=== PATIENT | male | born 1965 | race Caucasian/White ===

== ENCOUNTER 2016-07-02 16:12 | Inpatient (IN) | payer OTHER ==
[~2016-07-02] VITALS: Ht 172.7 cm; Wt 79.4 kg
[2016-07-02 18:30] VITALS: BP 125/80
[2016-07-02] MEDS: DOCUSATE SODIUM 100 MG CAPSULE PO SCH (20:32)
[2016-07-02] MEDS: SENNA 187 MG TABLET PO SCH (20:32)
[2016-07-02] MEDS: ATORVASTATIN CALCIUM 40 MG TABLET PO SCH (20:32)
[2016-07-02] MEDS: INSULIN GLARGINE,HUM.REC.ANLOG 100 UNITS/ML SQ SCH (20:33)
[2016-07-02] MEDS ORDERED: CARVEDILOL 6.25 MG TABLET PO SCH (21:00)
[2016-07-02] MEDS ORDERED: PNEUMOCOCCAL VACCINE POLYVALENT 0.5 ML VIAL [PPSV23] IM ONE (21:30)
[2016-07-02] MEDS ORDERED: INFLUENZA VIRUS VACCINE QVS 2016-17 (3YR+)/PF 60 MCG/0.5 ML SYRINGE IM ONE (21:30)
[2016-07-02 21:50] LABS: GLUCOSE COMMENT 1 Received Meds; GLUCOSE,POINT OF CARE 214 MG/DL (70-110)
[2016-07-02] MEDS ORDERED: DEXTROSE 50%-WATER 25 GM/50 ML SYRINGE IVP PRN (23:15)
[2016-07-02] MEDS: TraZODone HCL 50 MG TABLET PO PRN (23:18)
[2016-07-03 02:55] VITALS: BP 144/82
[2016-07-03 03:13] LABS: APPEARANCE,URINE CLEAR (CLEAR); GLUCOSE, URINE (UA) 250 mg/dL (NEGATIVE); KETONES,URINE NEGATIVE (NEGATIVE); LEUKOCYTE ESTERASE ,URINE NEGATIVE (NEGATIVE); OCCULT BLOOD,URINE NEGATIVE (NEGATIVE); PROTEIN,URINE NEGATIVE (NEGATIVE)
[2016-07-03 03:23] LABS: ADD UA MICROSCOPIC YES
[2016-07-03 03:24] LABS: RBC,URINE None Seen /HPF (0-2); WBC,URINE None Seen /HPF (0-5)
[2016-07-03 06:01] LABS: GLUCOSE,POINT OF CARE 156 MG/DL (70-110)
[2016-07-03 07:08] LABS: BASOPHILS % (AUTO) 0.5 % (0.0-2.0); EOSINOPHILS % (AUTO) 4.5 % (1.0-6.0); HEMATOCRIT 43.3 % (41-53); HEMOGLOBIN 14.4 g/dL (13.5-17.5); LYMPHOCYTES # (AUTO) 2.7 K/uL (1.0-4.8); MEAN CORPUSCULAR HGB CONC 33.3 G/dL (31.0-37.0); MEAN CORPUSCULAR VOLUME 84 fL (80-100); MONOCYTES # (AUTO) 0.6 K/uL (0.1-1.0); MONOCYTES % (AUTO) 6.7 % (2.0-9.0); NEUTROPHILS # (AUTO) 4.8 K/uL (1.8-7.7); NEUTROPHILS % (AUTO) 56.3 % (40.0-70.0); PLATELET COUNT (AUTO) 234 K/uL (150-450); RED BLOOD CELL COUNT(AUTO) 5.15 MIL/uL (4.50-5.90); RED CELL DISTRIBUTION WIDTH 13.8 % (11.5-14.5); WHITE BLOOD COUNT (AUTO) 8.5 K/uL (4.5-11.0)
[2016-07-03 07:34] LABS: ALBUMIN 3.7 g/dL (3.4-5.0); BILIRUBIN,TOTAL 0.5 mg/dL (0.1-1.0); CALCIUM, TOTAL 9.4 mg/dL (8.8-10.5); CREATININE 1.34 mg/dL (0.60-1.30); POTASSIUM 4.3 mmol/L (3.5-5.1); TOTAL PROTEIN, SERUM 7.9 g/dL (6.4-8.2)
[2016-07-03 07:35] VITALS: BP 141/95
[2016-07-03] MEDS: DOCUSATE SODIUM 100 MG CAPSULE PO SCH ×2 (08:56→21:03)
[2016-07-03] MEDS: ASPIRIN 81 MG CHEWABLE TABLET PO SCH (08:56)
[2016-07-03] MEDS: POTASSIUM CHLORIDE 10 MEQ ER TABLET PO SCH (08:56)
[2016-07-03] MEDS: MetFORMIN HCL 500 MG TABLET PO SCH ×2 (08:56→17:20)
[2016-07-03] MEDS ORDERED: LISINOPRIL 20 MG TABLET PO SCH (09:00)
[2016-07-03] MEDS ORDERED: FUROSEMIDE 40 MG TABLET PO SCH (09:00)
[2016-07-03] MEDS: INSULIN ASPART 100 UNITS/ML SQ PRN ×4 (09:01→21:02)
[2016-07-03] MEDS: SERTRALINE HCL 50 MG TABLET PO SCH (09:16)
[2016-07-03] MEDS: HEPARIN SODIUM,PORCINE 5,000 UNITS/ML VIAL SQ SCH ×2 (12:27→20:56)
[2016-07-03 12:55] LABS: GLUCOSE COMMENT 1 Received Meds; GLUCOSE,POINT OF CARE 181 MG/DL (70-110)
[2016-07-03 15:18] VITALS: BP 101/67
[2016-07-03 18:06] LABS: GLUCOSE COMMENT 1 Received Meds; GLUCOSE,POINT OF CARE 202 MG/DL (70-110)
[2016-07-03] MEDS: ATORVASTATIN CALCIUM 40 MG TABLET PO SCH (20:56)
[2016-07-03] MEDS: SENNA 187 MG TABLET PO SCH (20:56)
[2016-07-03] MEDS: INSULIN GLARGINE,HUM.REC.ANLOG 100 UNITS/ML SQ SCH (21:01)
[2016-07-03 21:51] LABS: GLUCOSE COMMENT 1 Received Meds; GLUCOSE,POINT OF CARE 193 MG/DL (70-110)
[2016-07-04] VITALS: BP 152/79
[2016-07-04] MEDS: TraZODone HCL 50 MG TABLET PO PRN (00:48)
[2016-07-04 05:56] LABS: GLUCOSE,POINT OF CARE 159 MG/DL (70-110)
[2016-07-04 07:27] LABS: CALCIUM, TOTAL 9.3 mg/dL (8.8-10.5); CREATININE 1.4 mg/dL (0.60-1.30)
[2016-07-04 07:30] VITALS: BP 143/86
[2016-07-04] MEDS: DOCUSATE SODIUM 100 MG CAPSULE PO SCH ×2 (08:26→20:13)
[2016-07-04] MEDS: MetFORMIN HCL 500 MG TABLET PO SCH ×2 (08:26→17:46)
[2016-07-04] MEDS: POTASSIUM CHLORIDE 10 MEQ ER TABLET PO SCH (08:26)
[2016-07-04] MEDS: ASPIRIN 81 MG CHEWABLE TABLET PO SCH (08:26)
[2016-07-04] MEDS: SERTRALINE HCL 50 MG TABLET PO SCH (08:26)
[2016-07-04] MEDS: HEPARIN SODIUM,PORCINE 5,000 UNITS/ML VIAL SQ SCH ×2 (08:36→20:13)
[2016-07-04] MEDS: INSULIN ASPART 100 UNITS/ML SQ PRN ×4 (08:37→20:21)
[2016-07-04] MEDS: ACETAMINOPHEN 325 MG TABLET PO PRN (11:22)
[2016-07-04 13:01] LABS: GLUCOSE,POINT OF CARE 165 MG/DL (70-110)
[2016-07-04 17:28] VITALS: BP 137/96
[2016-07-04 18:15] LABS: GLUCOSE COMMENT 1 Received Meds; GLUCOSE,POINT OF CARE 151 MG/DL (70-110)
[2016-07-04] MEDS: SENNA 187 MG TABLET PO SCH (20:13)
[2016-07-04] MEDS: ATORVASTATIN CALCIUM 40 MG TABLET PO SCH (20:13)
[2016-07-04] MEDS: INSULIN GLARGINE,HUM.REC.ANLOG 100 UNITS/ML SQ SCH (20:20)
[2016-07-04 21:36] LABS: GLUCOSE COMMENT 1 Received Meds; GLUCOSE,POINT OF CARE 229 MG/DL (70-110)
[2016-07-05 02:29] VITALS: BP 153/89
[2016-07-05 06:01] LABS: GLUCOSE,POINT OF CARE 175 MG/DL (70-110)
[2016-07-05 07:04] VITALS: BP 134/70
[2016-07-05] MEDS: DOCUSATE SODIUM 100 MG CAPSULE PO SCH ×2 (08:01→21:28)
[2016-07-05] MEDS: POTASSIUM CHLORIDE 10 MEQ ER TABLET PO SCH (08:02)
[2016-07-05] MEDS: CARVEDILOL 3.125 MG TABLET PO SCH ×2 (08:02→21:28)
[2016-07-05] MEDS: HEPARIN SODIUM,PORCINE 5,000 UNITS/ML VIAL SQ SCH ×2 (08:02→21:32)
[2016-07-05] MEDS: SERTRALINE HCL 50 MG TABLET PO SCH (08:02)
[2016-07-05] MEDS: LISINOPRIL 5 MG TABLET PO SCH (08:02)
[2016-07-05] MEDS: ASPIRIN 81 MG CHEWABLE TABLET PO SCH (08:02)
[2016-07-05] MEDS: MetFORMIN HCL 500 MG TABLET PO SCH (08:02)
[2016-07-05] MEDS: INSULIN ASPART 100 UNITS/ML SQ PRN ×2 (08:06→21:29)
[2016-07-05] MEDS ORDERED: LISINOPRIL 20 MG TABLET PO SCH (09:00)
[2016-07-05] MEDS ORDERED: FUROSEMIDE 40 MG TABLET PO SCH (09:00)
[2016-07-05] MEDS ORDERED: CARVEDILOL 6.25 MG TABLET PO SCH (09:00)
[2016-07-05 11:21] LABS: GLUCOSE,POINT OF CARE 136 MG/DL (70-110)
[2016-07-05 15:11] VITALS: BP 105/63
[2016-07-05 18:11] LABS: GLUCOSE,POINT OF CARE 139 MG/DL (70-110)
[2016-07-05 20:46] LABS: GLUCOSE,POINT OF CARE 211 MG/DL (70-110)
[2016-07-05] MEDS: ATORVASTATIN CALCIUM 40 MG TABLET PO SCH (21:28)
[2016-07-05] MEDS: SENNA 187 MG TABLET PO SCH (21:28)
[2016-07-05 22:59] VITALS: BP 141/96
[2016-07-05 23:24] VITALS: BP 129/59
[2016-07-06 05:51] LABS: GLUCOSE,POINT OF CARE 162 MG/DL (70-110)
[2016-07-06 06:25] LABS: BASOPHILS # (AUTO) 0.03 K/uL (0.00-0.20); BASOPHILS % (AUTO) 0.3 % (0.0-2.0); EOSINOPHILS # (AUTO) 0.35 K/uL (0.00-0.70); HEMOGLOBIN 13.9 g/dL (13.5-17.5); LYMPHOCYTES # (AUTO) 2.6 K/uL (1.0-4.8); LYMPHOCYTES % (AUTO) 30.2 % (22.0-44.0); MEAN CORPUSCULAR HEMOGLOBIN 28.2 pg (26.0-34.0); MEAN CORPUSCULAR HGB CONC 33.9 G/dL (31.0-37.0); MEAN CORPUSCULAR VOLUME 83 fL (80-100); MONOCYTES # (AUTO) 0.6 K/uL (0.1-1.0); MONOCYTES % (AUTO) 7.3 % (2.0-9.0); NEUTROPHILS % (AUTO) 58.1 % (40.0-70.0); PLATELET COUNT (AUTO) 213 K/uL (150-450); RED BLOOD CELL COUNT(AUTO) 4.93 MIL/uL (4.50-5.90); RED CELL DISTRIBUTION WIDTH 13.3 % (11.5-14.5); WHITE BLOOD COUNT (AUTO) 8.5 K/uL (4.5-11.0)
[2016-07-06 06:42] LABS: CALCIUM, TOTAL 9.1 mg/dL (8.8-10.5); CREATININE 1.5 mg/dL (0.60-1.30); MAGNESIUM 1.8 mg/dL (1.80-2.40); PHOSPHORUS 3.9 mg/dL (2.5-4.9); POTASSIUM 4.1 mmol/L (3.5-5.1)
[2016-07-06 07:20] VITALS: BP 133/83
[2016-07-06] MEDS: HEPARIN SODIUM,PORCINE 5,000 UNITS/ML VIAL SQ SCH ×2 (08:19→20:55)
[2016-07-06] MEDS: ASPIRIN 81 MG CHEWABLE TABLET PO SCH (08:19)
[2016-07-06] MEDS: LISINOPRIL 5 MG TABLET PO SCH (08:19)
[2016-07-06] MEDS: GlipiZIDE 5 MG TABLET PO SCH (08:20)
[2016-07-06] MEDS: DOCUSATE SODIUM 100 MG CAPSULE PO SCH ×2 (08:20→20:56)
[2016-07-06] MEDS: CARVEDILOL 3.125 MG TABLET PO SCH ×2 (08:20→20:56)
[2016-07-06] MEDS: SERTRALINE HCL 50 MG TABLET PO SCH (08:21)
[2016-07-06] MEDS: POTASSIUM CHLORIDE 10 MEQ ER TABLET PO SCH (08:21)
[2016-07-06] MEDS: FUROSEMIDE 40 MG TABLET PO SCH (08:21)
[2016-07-06] MEDS: INSULIN ASPART 100 UNITS/ML SQ PRN ×3 (08:31→20:57)
[2016-07-06] MEDS ORDERED: MetFORMIN HCL 500 MG TABLET PO SCH (09:00)
[2016-07-06 14:45] VITALS: BP 122/77
[2016-07-06 17:41] LABS: GLUCOSE,POINT OF CARE 99 MG/DL (70-110)
[2016-07-06 17:41] LABS: GLUCOSE,POINT OF CARE 149 MG/DL (70-110)
[2016-07-06 20:30] VITALS: BP 109/79
[2016-07-06] MEDS: ATORVASTATIN CALCIUM 40 MG TABLET PO SCH (20:56)
[2016-07-06] MEDS: SENNA 187 MG TABLET PO SCH (20:56)
[2016-07-06 23:51] VITALS: BP 136/81
[2016-07-07] MEDS: TraZODone HCL 50 MG TABLET PO PRN ×2 (00:55→21:35)
[2016-07-07 05:31] LABS: GLUCOSE,POINT OF CARE 210 MG/DL (70-110)
[2016-07-07 06:11] LABS: GLUCOSE,POINT OF CARE 201 MG/DL (70-110)
[2016-07-07 06:56] LABS: CALCIUM, TOTAL 9.3 mg/dL (8.8-10.5); CREATININE 1.66 mg/dL (0.60-1.30); POTASSIUM 4.4 mmol/L (3.5-5.1)
[2016-07-07 06:59] VITALS: BP 137/89
[2016-07-07] MEDS: LISINOPRIL 5 MG TABLET PO SCH (07:39)
[2016-07-07] MEDS: FUROSEMIDE 40 MG TABLET PO SCH (07:40)
[2016-07-07] MEDS: SERTRALINE HCL 50 MG TABLET PO SCH (07:40)
[2016-07-07] MEDS: HEPARIN SODIUM,PORCINE 5,000 UNITS/ML VIAL SQ SCH ×2 (07:40→20:30)
[2016-07-07] MEDS: GlipiZIDE 5 MG TABLET PO SCH (07:40)
[2016-07-07] MEDS: ASPIRIN 81 MG CHEWABLE TABLET PO SCH (07:40)
[2016-07-07] MEDS: POTASSIUM CHLORIDE 10 MEQ ER TABLET PO SCH (07:40)
[2016-07-07] MEDS: CARVEDILOL 3.125 MG TABLET PO SCH ×2 (07:40→20:30)
[2016-07-07] MEDS: DOCUSATE SODIUM 100 MG CAPSULE PO SCH ×2 (07:40→20:30)
[2016-07-07] MEDS: INSULIN ASPART 100 UNITS/ML SQ PRN ×3 (07:44→20:32)
[2016-07-07] MEDS: ACETAMINOPHEN 325 MG TABLET PO PRN (09:59)
[2016-07-07 12:31] LABS: GLUCOSE,POINT OF CARE 152 MG/DL (70-110)
[2016-07-07 15:10] VITALS: BP 126/74
[2016-07-07 18:30] LABS: GLUCOSE,POINT OF CARE 132 MG/DL (70-110)
[2016-07-07] MEDS: SENNA 187 MG TABLET PO SCH (20:30)
[2016-07-07] MEDS: ATORVASTATIN CALCIUM 40 MG TABLET PO SCH (20:30)
[2016-07-07 21:00] VITALS: BP 122/58
[2016-07-07 22:40] LABS: GLUCOSE,POINT OF CARE 261 MG/DL (70-110)
[2016-07-08 00:05] VITALS: BP 115/73
[2016-07-08 06:18] LABS: GLUCOSE,POINT OF CARE 182 MG/DL (70-110)
[2016-07-08 07:02] VITALS: BP 131/99
[2016-07-08 07:40] LABS: CALCIUM, TOTAL 9.1 mg/dL (8.8-10.5); CREATININE 1.43 mg/dL (0.60-1.30); PHOSPHORUS 3.8 mg/dL (2.5-4.9); POTASSIUM 4.6 mmol/L (3.5-5.1)
[2016-07-08] MEDS: CARVEDILOL 3.125 MG TABLET PO SCH ×2 (07:47→20:31)
[2016-07-08] MEDS: FUROSEMIDE 40 MG TABLET PO SCH (07:47)
[2016-07-08] MEDS: POTASSIUM CHLORIDE 10 MEQ ER TABLET PO SCH (07:47)
[2016-07-08] MEDS: DOCUSATE SODIUM 100 MG CAPSULE PO SCH (07:47)
[2016-07-08] MEDS: HEPARIN SODIUM,PORCINE 5,000 UNITS/ML VIAL SQ SCH ×2 (07:47→20:31)
[2016-07-08] MEDS: LISINOPRIL 5 MG TABLET PO SCH (07:47)
[2016-07-08] MEDS: SERTRALINE HCL 50 MG TABLET PO SCH (07:47)
[2016-07-08] MEDS: GlipiZIDE 5 MG TABLET PO SCH (07:47)
[2016-07-08] MEDS: ASPIRIN 81 MG CHEWABLE TABLET PO SCH (07:47)
[2016-07-08] MEDS: INSULIN ASPART 100 UNITS/ML SQ PRN ×3 (07:53→20:31)
[2016-07-08 11:46] LABS: GLUCOSE,POINT OF CARE 173 MG/DL (70-110)
[2016-07-08 15:38] VITALS: BP 113/100
[2016-07-08 18:12] LABS: GLUCOSE,POINT OF CARE 129 MG/DL (70-110)
[2016-07-08] MEDS: SENNA 187 MG TABLET PO SCH (20:31)
[2016-07-08] MEDS: ATORVASTATIN CALCIUM 40 MG TABLET PO SCH (20:31)
[2016-07-08 20:36] VITALS: BP 118/70
[2016-07-08 21:26] LABS: GLUCOSE COMMENT 1 Received Meds; GLUCOSE,POINT OF CARE 183 MG/DL (70-110)
[2016-07-08 23:12] VITALS: BP 120/76
[2016-07-08] MEDS: TraZODone HCL 50 MG TABLET PO PRN (23:42)
[2016-07-09 05:57] LABS: GLUCOSE,POINT OF CARE 187 MG/DL (70-110)
[2016-07-09 07:34] LABS: CALCIUM, TOTAL 9.2 mg/dL (8.8-10.5); CREATININE 1.48 mg/dL (0.60-1.30); MAGNESIUM 2.1 mg/dL (1.80-2.40); PHOSPHORUS 3.5 mg/dL (2.5-4.9); POTASSIUM 4.1 mmol/L (3.5-5.1)
[2016-07-09 07:38] VITALS: BP 122/98
[2016-07-09] MEDS: HEPARIN SODIUM,PORCINE 5,000 UNITS/ML VIAL SQ SCH ×2 (09:11→20:16)
[2016-07-09] MEDS: INSULIN ASPART 100 UNITS/ML SQ PRN ×2 (09:12→20:17)
[2016-07-09] MEDS: ASPIRIN 81 MG CHEWABLE TABLET PO SCH (09:13)
[2016-07-09] MEDS: POTASSIUM CHLORIDE 10 MEQ ER TABLET PO SCH (09:13)
[2016-07-09] MEDS: ERGOCALCIFEROL (VIT D2) 50,000 UNITS CAPSULE PO SCH (09:13)
[2016-07-09] MEDS: DOCUSATE SODIUM 250 MG CAPSULE PO SCH (09:13)
[2016-07-09] MEDS: FUROSEMIDE 40 MG TABLET PO SCH (09:14)
[2016-07-09] MEDS: LISINOPRIL 5 MG TABLET PO SCH (09:14)
[2016-07-09] MEDS: SERTRALINE HCL 50 MG TABLET PO SCH (09:14)
[2016-07-09] MEDS: CARVEDILOL 3.125 MG TABLET PO SCH ×2 (09:14→20:16)
[2016-07-09] MEDS: GlipiZIDE 5 MG TABLET PO SCH (09:14)
[2016-07-09 12:46] LABS: GLUCOSE,POINT OF CARE 123 MG/DL (70-110)
[2016-07-09 15:10] VITALS: BP 98/77
[2016-07-09 17:21] LABS: GLUCOSE,POINT OF CARE 115 MG/DL (70-110)
[2016-07-09] MEDS: ATORVASTATIN CALCIUM 40 MG TABLET PO SCH (20:16)
[2016-07-09] MEDS: SENNA 187 MG TABLET PO SCH (20:16)
[2016-07-09 21:37] LABS: GLUCOSE COMMENT 1 Received Meds; GLUCOSE,POINT OF CARE 228 MG/DL (70-110)
[2016-07-09] MEDS: TraZODone HCL 50 MG TABLET PO PRN (23:08)
[2016-07-10] VITALS: BP 125/75
[2016-07-10] MEDS: GlipiZIDE 5 MG TABLET PO SCH (05:53)
[2016-07-10 05:55] LABS: GLUCOSE,POINT OF CARE 195 MG/DL (70-110)
[2016-07-10 07:30] VITALS: BP 131/73
[2016-07-10] MEDS: POTASSIUM CHLORIDE 10 MEQ ER TABLET PO SCH (08:08)
[2016-07-10] MEDS: DOCUSATE SODIUM 250 MG CAPSULE PO SCH (08:08)
[2016-07-10] MEDS: FUROSEMIDE 40 MG TABLET PO SCH (08:08)
[2016-07-10] MEDS: HEPARIN SODIUM,PORCINE 5,000 UNITS/ML VIAL SQ SCH ×2 (08:09→20:40)
[2016-07-10] MEDS: ASPIRIN 81 MG CHEWABLE TABLET PO SCH (08:09)
[2016-07-10] MEDS: LISINOPRIL 5 MG TABLET PO SCH (08:09)
[2016-07-10] MEDS: CARVEDILOL 3.125 MG TABLET PO SCH ×2 (08:09→20:40)
[2016-07-10] MEDS: SERTRALINE HCL 50 MG TABLET PO SCH (08:09)
[2016-07-10] MEDS: INSULIN ASPART 100 UNITS/ML SQ PRN ×2 (08:10→20:46)
[2016-07-10 12:37] LABS: GLUCOSE,POINT OF CARE 136 MG/DL (70-110)
[2016-07-10 16:40] VITALS: BP 118/70
[2016-07-10 17:41] LABS: GLUCOSE,POINT OF CARE 137 MG/DL (70-110)
[2016-07-10 20:36] VITALS: BP 119/53
[2016-07-10] MEDS: ATORVASTATIN CALCIUM 40 MG TABLET PO SCH (20:40)
[2016-07-10] MEDS: SENNA 187 MG TABLET PO SCH (20:40)
[2016-07-10 22:00] LABS: GLUCOSE,POINT OF CARE 194 MG/DL (70-110)
[2016-07-10] MEDS: TraZODone HCL 50 MG TABLET PO PRN (23:06)
[2016-07-10 23:10] VITALS: BP 127/76
[2016-07-11 05:42] LABS: GLUCOSE COMMENT 1 Received Meds; GLUCOSE,POINT OF CARE 209 MG/DL (70-110)
[2016-07-11] MEDS: GlipiZIDE 5 MG TABLET PO SCH (05:43)
[2016-07-11 07:09] LABS: CALCIUM, TOTAL 8.6 mg/dL (8.8-10.5); CREATININE 1.72 mg/dL (0.60-1.30); MAGNESIUM 1.8 mg/dL (1.80-2.40); PHOSPHORUS 3.4 mg/dL (2.5-4.9); POTASSIUM 4.8 mmol/L (3.5-5.1)
[2016-07-11 07:37] VITALS: BP 134/65
[2016-07-11] MEDS: SERTRALINE HCL 50 MG TABLET PO SCH (08:07)
[2016-07-11] MEDS: INSULIN ASPART 100 UNITS/ML SQ PRN ×3 (08:07→20:09)
[2016-07-11] MEDS: LISINOPRIL 5 MG TABLET PO SCH (08:08)
[2016-07-11] MEDS: CARVEDILOL 3.125 MG TABLET PO SCH ×2 (08:08→20:10)
[2016-07-11] MEDS: FUROSEMIDE 40 MG TABLET PO SCH (08:08)
[2016-07-11] MEDS: DOCUSATE SODIUM 250 MG CAPSULE PO SCH ×2 (08:08→20:10)
[2016-07-11] MEDS: POTASSIUM CHLORIDE 10 MEQ ER TABLET PO SCH (08:08)
[2016-07-11] MEDS: HEPARIN SODIUM,PORCINE 5,000 UNITS/ML VIAL SQ SCH ×2 (08:10→20:09)
[2016-07-11] MEDS: ASPIRIN 81 MG CHEWABLE TABLET PO SCH (08:10)
[2016-07-11 08:11] LABS: BASOPHILS % (AUTO) 0.5 % (0.0-2.0); EOSINOPHILS % (AUTO) 2.3 % (1.0-6.0); HEMATOCRIT 40.9 % (41-53); HEMOGLOBIN 13.6 g/dL (13.5-17.5); LYMPHOCYTES # (AUTO) 2.3 K/uL (1.0-4.8); LYMPHOCYTES % (AUTO) 28.2 % (22.0-44.0); MEAN CORPUSCULAR HEMOGLOBIN 28.2 pg (26.0-34.0); MEAN CORPUSCULAR HGB CONC 33.3 G/dL (31.0-37.0); MEAN CORPUSCULAR VOLUME 85 fL (80-100); MONOCYTES # (AUTO) 0.4 K/uL (0.1-1.0); MONOCYTES % (AUTO) 4.9 % (2.0-9.0); NEUTROPHILS # (AUTO) 5.1 K/uL (1.8-7.7); NEUTROPHILS % (AUTO) 64.1 % (40.0-70.0); PLATELET COUNT (AUTO) 202 K/uL (150-450); RED BLOOD CELL COUNT(AUTO) 4.84 MIL/uL (4.50-5.90); RED CELL DISTRIBUTION WIDTH 14.1 % (11.5-14.5)
[2016-07-11 12:46] LABS: GLUCOSE,POINT OF CARE 133 MG/DL (70-110)
[2016-07-11 15:42] VITALS: BP 117/67
[2016-07-11] MEDS ORDERED: CARV3 PO (16:13)
[2016-07-11] MEDS ORDERED: POTA-9 PO (16:13)
[2016-07-11] MEDS ORDERED: ATOR40TA28 PO (16:13)
[2016-07-11] MEDS ORDERED: ERGO500044 PO (16:13)
[2016-07-11] MEDS ORDERED: ASPI81TA2 PO (16:13)
[2016-07-11] MEDS ORDERED: GLIP5 PO (16:13)
[2016-07-11] MEDS ORDERED: LISI-660 PO (16:13)
[2016-07-11] MEDS ORDERED: FURO40 PO (16:13)
[2016-07-11] MEDS ORDERED: DOCU250C91 PO (16:13)
[2016-07-11] MEDS ORDERED: SERT100T12 PO (16:13)
[2016-07-11 20:00] VITALS: BP 150/67
[2016-07-11] MEDS: SENNA 187 MG TABLET PO SCH (20:10)
[2016-07-11] MEDS: ATORVASTATIN CALCIUM 40 MG TABLET PO SCH (20:10)
[2016-07-11 20:50] LABS: GLUCOSE COMMENT 1 Received Meds; GLUCOSE,POINT OF CARE 186 MG/DL (70-110)
[2016-07-11 20:50] LABS: GLUCOSE COMMENT 1 Received Meds; GLUCOSE,POINT OF CARE 178 MG/DL (70-110)
[2016-07-11] MEDS: TraZODone HCL 50 MG TABLET PO PRN (23:03)
[2016-07-11 23:10] VITALS: BP 132/81
[2016-07-12 06:16] LABS: GLUCOSE,POINT OF CARE 206 MG/DL (70-110)
[2016-07-12 07:30] VITALS: BP 119/83
[2016-07-12 07:30] LABS: BASOPHILS % (AUTO) 0.5 % (0.0-2.0); EOSINOPHILS % (AUTO) 2.2 % (1.0-6.0); HEMATOCRIT 41.3 % (41-53); HEMOGLOBIN 13.8 g/dL (13.5-17.5); LYMPHOCYTES # (AUTO) 1.9 K/uL (1.0-4.8); LYMPHOCYTES % (AUTO) 21.3 % (22.0-44.0); MEAN CORPUSCULAR HEMOGLOBIN 28.1 pg (26.0-34.0); MEAN CORPUSCULAR HGB CONC 33.4 G/dL (31.0-37.0); MEAN CORPUSCULAR VOLUME 84 fL (80-100); MONOCYTES # (AUTO) 0.6 K/uL (0.1-1.0); MONOCYTES % (AUTO) 7.3 % (2.0-9.0); NEUTROPHILS # (AUTO) 6.1 K/uL (1.8-7.7); NEUTROPHILS % (AUTO) 68.7 % (40.0-70.0); PLATELET COUNT (AUTO) 210 K/uL (150-450); RED BLOOD CELL COUNT(AUTO) 4.91 MIL/uL (4.50-5.90); RED CELL DISTRIBUTION WIDTH 14.2 % (11.5-14.5); WHITE BLOOD COUNT (AUTO) 8.9 K/uL (4.5-11.0)
[2016-07-12 07:50] LABS: CALCIUM, TOTAL 9.1 mg/dL (8.8-10.5); CREATININE 1.45 mg/dL (0.60-1.30); MAGNESIUM 2.1 mg/dL (1.80-2.40); PHOSPHORUS 3.3 mg/dL (2.5-4.9); POTASSIUM 4.7 mmol/L (3.5-5.1)
[2016-07-12] MEDS: CARVEDILOL 3.125 MG TABLET PO SCH ×2 (07:59→20:30)
[2016-07-12] MEDS: FUROSEMIDE 40 MG TABLET PO SCH (08:00)
[2016-07-12] MEDS: SERTRALINE HCL 50 MG TABLET PO SCH (08:00)
[2016-07-12] MEDS: POTASSIUM CHLORIDE 10 MEQ ER TABLET PO SCH (08:00)
[2016-07-12] MEDS: ASPIRIN 81 MG CHEWABLE TABLET PO SCH (08:00)
[2016-07-12] MEDS: DOCUSATE SODIUM 250 MG CAPSULE PO SCH ×2 (08:00→20:29)
[2016-07-12] MEDS: GlipiZIDE 5 MG TABLET PO SCH (08:01)
[2016-07-12] MEDS: LISINOPRIL 5 MG TABLET PO SCH (08:01)
[2016-07-12] MEDS: HEPARIN SODIUM,PORCINE 5,000 UNITS/ML VIAL SQ SCH ×2 (08:28→20:29)
[2016-07-12] MEDS: INSULIN ASPART 100 UNITS/ML SQ PRN ×2 (08:31→20:34)
[2016-07-12 12:21] LABS: GLUCOSE,POINT OF CARE 95 MG/DL (70-110)
[2016-07-12 16:15] VITALS: BP 126/75
[2016-07-12 18:45] LABS: GLUCOSE,POINT OF CARE 122 MG/DL (70-110)
[2016-07-12 20:26] VITALS: BP 117/69
[2016-07-12] MEDS: SENNA 187 MG TABLET PO SCH (20:29)
[2016-07-12] MEDS: ATORVASTATIN CALCIUM 40 MG TABLET PO SCH (20:30)
[2016-07-12] MEDS: ACETAMINOPHEN 325 MG TABLET PO PRN (20:39)
[2016-07-12 21:46] LABS: GLUCOSE,POINT OF CARE 142 MG/DL (70-110)
[2016-07-12] MEDS: TraZODone HCL 50 MG TABLET PO PRN (23:12)
[2016-07-12 23:21] LABS: GLUCOSE COMMENT 1 Received Meds; GLUCOSE,POINT OF CARE 177 MG/DL (70-110)
[2016-07-12 23:40] VITALS: BP 119/70
[2016-07-13 05:37] LABS: GLUCOSE,POINT OF CARE 187 MG/DL (70-110)
[2016-07-13 06:42] LABS: BASOPHILS # (AUTO) 0.03 K/uL (0.00-0.20); BASOPHILS % (AUTO) 0.4 % (0.0-2.0); EOSINOPHILS # (AUTO) 0.19 K/uL (0.00-0.70); EOSINOPHILS % (AUTO) 2.57 % (1.0-6.0); HEMOGLOBIN 13.5 g/dL (13.5-17.5); LYMPHOCYTES # (AUTO) 1.8 K/uL (1.0-4.8); LYMPHOCYTES % (AUTO) 24.3 % (22.0-44.0); MEAN CORPUSCULAR HEMOGLOBIN 28.1 pg (26.0-34.0); MEAN CORPUSCULAR HGB CONC 33.8 G/dL (31.0-37.0); MEAN CORPUSCULAR VOLUME 83 fL (80-100); MONOCYTES # (AUTO) 0.6 K/uL (0.1-1.0); MONOCYTES % (AUTO) 8.8 % (2.0-9.0); NEUTROPHILS # (AUTO) 4.6 K/uL (1.8-7.7); PLATELET COUNT (AUTO) 208 K/uL (150-450); RED BLOOD CELL COUNT(AUTO) 4.81 MIL/uL (4.50-5.90); RED CELL DISTRIBUTION WIDTH 14.5 % (11.5-14.5); WHITE BLOOD COUNT (AUTO) 7.2 K/uL (4.5-11.0)
[2016-07-13 06:57] LABS: CALCIUM, TOTAL 8.9 mg/dL (8.8-10.5); CREATININE 1.37 mg/dL (0.60-1.30); MAGNESIUM 2.1 mg/dL (1.80-2.40); PHOSPHORUS 3.5 mg/dL (2.5-4.9); POTASSIUM 4.5 mmol/L (3.5-5.1)
[2016-07-13] MEDS: GlipiZIDE 5 MG TABLET PO SCH (07:52)
[2016-07-13] MEDS: INSULIN ASPART 100 UNITS/ML SQ PRN ×2 (07:55→20:49)
[2016-07-13 08:02] VITALS: BP 137/94
[2016-07-13] MEDS: SERTRALINE HCL 50 MG TABLET PO SCH (09:24)
[2016-07-13] MEDS: LISINOPRIL 5 MG TABLET PO SCH (09:25)
[2016-07-13] MEDS: POTASSIUM CHLORIDE 10 MEQ ER TABLET PO SCH (09:25)
[2016-07-13] MEDS: CARVEDILOL 3.125 MG TABLET PO SCH ×3 (09:25→21:00)
[2016-07-13] MEDS: FUROSEMIDE 40 MG TABLET PO SCH (09:25)
[2016-07-13] MEDS: ASPIRIN 81 MG CHEWABLE TABLET PO SCH (09:25)
[2016-07-13] MEDS: DOCUSATE SODIUM 250 MG CAPSULE PO SCH ×2 (09:25→20:49)
[2016-07-13] MEDS: HEPARIN SODIUM,PORCINE 5,000 UNITS/ML VIAL SQ SCH ×2 (09:31→20:49)
[2016-07-13 13:57] LABS: GLUCOSE COMMENT 1 Post Meal; GLUCOSE,POINT OF CARE 170 MG/DL (70-110)
[2016-07-13 15:43] VITALS: BP 120/83
[2016-07-13] MEDS: BACLOFEN 10 MG TABLET PO SCH ×2 (16:52→20:48)
[2016-07-13 18:20] LABS: GLUCOSE,POINT OF CARE 125 MG/DL (70-110)
[2016-07-13] MEDS: SENNA 187 MG TABLET PO SCH (20:48)
[2016-07-13] MEDS: ATORVASTATIN CALCIUM 40 MG TABLET PO SCH (20:49)
[2016-07-13 21:03] VITALS: BP 102/63
[2016-07-13 21:56] LABS: GLUCOSE COMMENT 1 Received Meds; GLUCOSE,POINT OF CARE 150 MG/DL (70-110)
[2016-07-13] MEDS: TraZODone HCL 50 MG TABLET PO PRN (23:08)
[2016-07-14] VITALS: BP 117/66
[2016-07-14 05:41] LABS: GLUCOSE,POINT OF CARE 187 MG/DL (70-110)
[2016-07-14 07:42] VITALS: BP 110/73
[2016-07-14] MEDS: GlipiZIDE 5 MG TABLET PO SCH (07:53)
[2016-07-14] MEDS: INSULIN ASPART 100 UNITS/ML SQ PRN ×2 (07:54→20:36)
[2016-07-14] MEDS: CARVEDILOL 3.125 MG TABLET PO SCH ×2 (08:00→20:31)
[2016-07-14] MEDS: BACLOFEN 10 MG TABLET PO SCH ×3 (08:00→20:32)
[2016-07-14] MEDS: ASPIRIN 81 MG CHEWABLE TABLET PO SCH (08:00)
[2016-07-14] MEDS: FUROSEMIDE 40 MG TABLET PO SCH (08:00)
[2016-07-14] MEDS: DOCUSATE SODIUM 250 MG CAPSULE PO SCH ×2 (08:00→20:31)
[2016-07-14] MEDS: LISINOPRIL 5 MG TABLET PO SCH (08:03)
[2016-07-14] MEDS: SERTRALINE HCL 50 MG TABLET PO SCH (08:03)
[2016-07-14] MEDS: HEPARIN SODIUM,PORCINE 5,000 UNITS/ML VIAL SQ SCH ×2 (08:04→20:30)
[2016-07-14] MEDS: POTASSIUM CHLORIDE 10 MEQ ER TABLET PO SCH (08:04)
[2016-07-14 15:57] VITALS: BP 112/76
[2016-07-14 17:21] LABS: GLUCOSE,POINT OF CARE 96 MG/DL (70-110)
[2016-07-14 18:26] LABS: GLUCOSE,POINT OF CARE 114 MG/DL (70-110)
[2016-07-14 20:20] VITALS: BP 107/68
[2016-07-14] MEDS: ATORVASTATIN CALCIUM 40 MG TABLET PO SCH (20:30)
[2016-07-14] MEDS: SENNA 187 MG TABLET PO SCH (20:30)
[2016-07-14 20:50] LABS: GLUCOSE COMMENT 1 Received Meds; GLUCOSE,POINT OF CARE 269 MG/DL (70-110)
[2016-07-14] MEDS: TraZODone HCL 50 MG TABLET PO PRN (22:32)
[2016-07-15 00:22] VITALS: BP 116/85
[2016-07-15 06:37] LABS: GLUCOSE,POINT OF CARE 208 MG/DL (70-110)
[2016-07-15] MEDS: GlipiZIDE 5 MG TABLET PO SCH (07:01)
[2016-07-15 07:27] VITALS: BP 132/81
[2016-07-15] MEDS: FUROSEMIDE 40 MG TABLET PO SCH (07:45)
[2016-07-15] MEDS: SERTRALINE HCL 50 MG TABLET PO SCH (07:45)
[2016-07-15] MEDS: BACLOFEN 10 MG TABLET PO SCH ×3 (07:45→20:08)
[2016-07-15] MEDS: LISINOPRIL 5 MG TABLET PO SCH (07:46)
[2016-07-15] MEDS: DOCUSATE SODIUM 250 MG CAPSULE PO SCH ×2 (07:46→20:07)
[2016-07-15] MEDS: ASPIRIN 81 MG CHEWABLE TABLET PO SCH (07:46)
[2016-07-15] MEDS: POTASSIUM CHLORIDE 10 MEQ ER TABLET PO SCH (07:46)
[2016-07-15] MEDS: CARVEDILOL 3.125 MG TABLET PO SCH ×2 (07:47→20:08)
[2016-07-15] MEDS: HEPARIN SODIUM,PORCINE 5,000 UNITS/ML VIAL SQ SCH ×2 (07:47→20:08)
[2016-07-15] MEDS: INSULIN ASPART 100 UNITS/ML SQ PRN ×2 (07:49→20:14)
[2016-07-15] MEDS ORDERED: GLIP5 PO (09:09)
[2016-07-15] MEDS ORDERED: BACL10TA PO (09:09)
[2016-07-15 11:26] LABS: GLUCOSE,POINT OF CARE 126 MG/DL (70-110)
[2016-07-15 15:16] VITALS: BP 122/85
[2016-07-15 17:53] LABS: GLUCOSE,POINT OF CARE 140 MG/DL (70-110)
[2016-07-15 19:59] VITALS: BP 114/74
[2016-07-15] MEDS: ATORVASTATIN CALCIUM 40 MG TABLET PO SCH (20:07)
[2016-07-15] MEDS: SENNA 187 MG TABLET PO SCH (20:07)
[2016-07-15 20:16] LABS: GLUCOSE COMMENT 1 Received Meds; GLUCOSE,POINT OF CARE 244 MG/DL (70-110)
[2016-07-15] MEDS: TraZODone HCL 50 MG TABLET PO PRN (20:57)
[2016-07-16 00:46] VITALS: BP 124/71
[2016-07-16] MEDS: DOCUSATE SODIUM 283 MG/5 ML MINI-ENEMA PR PRN (05:08)
[2016-07-16 05:46] LABS: GLUCOSE,POINT OF CARE 195 MG/DL (70-110)
[2016-07-16] MEDS: GlipiZIDE 5 MG TABLET PO SCH (06:20)
[2016-07-16 07:34] VITALS: BP 110/80
[2016-07-16] MEDS: ASPIRIN 81 MG CHEWABLE TABLET PO SCH (08:05)
[2016-07-16] MEDS: CARVEDILOL 3.125 MG TABLET PO SCH ×2 (08:06→20:02)
[2016-07-16] MEDS: POTASSIUM CHLORIDE 10 MEQ ER TABLET PO SCH (08:06)
[2016-07-16] MEDS: FUROSEMIDE 40 MG TABLET PO SCH (08:06)
[2016-07-16] MEDS: BACLOFEN 10 MG TABLET PO SCH ×3 (08:07→20:02)
[2016-07-16] MEDS: ERGOCALCIFEROL (VIT D2) 50,000 UNITS CAPSULE PO SCH (08:07)
[2016-07-16] MEDS: LISINOPRIL 5 MG TABLET PO SCH (08:07)
[2016-07-16] MEDS: SERTRALINE HCL 50 MG TABLET PO SCH (08:07)
[2016-07-16] MEDS: HEPARIN SODIUM,PORCINE 5,000 UNITS/ML VIAL SQ SCH ×2 (08:08→20:02)
[2016-07-16] MEDS: INSULIN ASPART 100 UNITS/ML SQ PRN ×3 (08:13→20:08)
[2016-07-16] MEDS: DOCUSATE SODIUM 250 MG CAPSULE PO SCH ×2 (08:20→20:03)
[2016-07-16 11:46] LABS: GLUCOSE,POINT OF CARE 94 MG/DL (70-110)
[2016-07-16 15:05] VITALS: BP 102/49
[2016-07-16] MEDS: SENNA 187 MG TABLET PO SCH (20:02)
[2016-07-16] MEDS: ATORVASTATIN CALCIUM 40 MG TABLET PO SCH (20:02)
[2016-07-16 20:06] VITALS: BP 130/73
[2016-07-16 20:46] LABS: GLUCOSE COMMENT 1 Received Meds; GLUCOSE,POINT OF CARE 160 MG/DL (70-110)
[2016-07-16 20:46] LABS: GLUCOSE COMMENT 1 Received Meds; GLUCOSE,POINT OF CARE 210 MG/DL (70-110)
[2016-07-16] MEDS: TraZODone HCL 50 MG TABLET PO PRN (23:46)
[2016-07-17 00:07] VITALS: BP 132/76
[2016-07-17] MEDS: DOCUSATE SODIUM 283 MG/5 ML MINI-ENEMA PR PRN (05:33)
[2016-07-17 05:45] LABS: GLUCOSE,POINT OF CARE 191 MG/DL (70-110)
[2016-07-17] MEDS: GlipiZIDE 5 MG TABLET PO SCH ×2 (07:02→16:42)
[2016-07-17 07:22] VITALS: BP 126/88
[2016-07-17] MEDS: FUROSEMIDE 40 MG TABLET PO SCH (08:03)
[2016-07-17] MEDS: ASPIRIN 81 MG CHEWABLE TABLET PO SCH (08:03)
[2016-07-17] MEDS: LISINOPRIL 5 MG TABLET PO SCH (08:03)
[2016-07-17] MEDS: SERTRALINE HCL 50 MG TABLET PO SCH (08:03)
[2016-07-17] MEDS: POTASSIUM CHLORIDE 10 MEQ ER TABLET PO SCH (08:03)
[2016-07-17] MEDS: BACLOFEN 10 MG TABLET PO SCH ×4 (08:03→20:02)
[2016-07-17] MEDS: CARVEDILOL 3.125 MG TABLET PO SCH ×2 (08:03→20:01)
[2016-07-17] MEDS: DOCUSATE SODIUM 250 MG CAPSULE PO SCH ×3 (08:04→20:01)
[2016-07-17] MEDS: INSULIN ASPART 100 UNITS/ML SQ PRN (08:05)
[2016-07-17] MEDS: HEPARIN SODIUM,PORCINE 5,000 UNITS/ML VIAL SQ SCH ×3 (08:06→20:01)
[2016-07-17 11:47] LABS: GLUCOSE,POINT OF CARE 102 MG/DL (70-110)
[2016-07-17 15:28] VITALS: BP 100/51
[2016-07-17] MEDS: ATORVASTATIN CALCIUM 40 MG TABLET PO SCH ×2 (19:55→20:01)
[2016-07-17] MEDS: SENNA 187 MG TABLET PO SCH ×2 (19:55→20:01)
[2016-07-17 19:58] VITALS: BP 113/72
[2016-07-17 20:46] LABS: GLUCOSE,POINT OF CARE 115 MG/DL (70-110)
[2016-07-17 20:46] LABS: GLUCOSE,POINT OF CARE 132 MG/DL (70-110)
[2016-07-17] MEDS: TraZODone HCL 50 MG TABLET PO PRN (23:48)
[2016-07-18] VITALS: BP 106/65
[2016-07-18 05:50] LABS: GLUCOSE,POINT OF CARE 165 MG/DL (70-110)
[2016-07-18] MEDS: DOCUSATE SODIUM 283 MG/5 ML MINI-ENEMA PR PRN (05:59)
[2016-07-18] MEDS: GlipiZIDE 5 MG TABLET PO SCH ×2 (06:29→17:25)
[2016-07-18 06:43] LABS: BASOPHILS % (AUTO) 0.3 % (0.0-2.0); HEMATOCRIT 42.6 % (41-53); LYMPHOCYTES % (AUTO) 28.2 % (22.0-44.0); MEAN CORPUSCULAR HEMOGLOBIN 28.1 pg (26.0-34.0); MEAN CORPUSCULAR HGB CONC 32.9 G/dL (31.0-37.0); MEAN CORPUSCULAR VOLUME 85 fL (80-100); MONOCYTES # (AUTO) 0.7 K/uL (0.1-1.0); MONOCYTES % (AUTO) 6.5 % (2.0-9.0); NEUTROPHILS # (AUTO) 6.6 K/uL (1.8-7.7); PLATELET COUNT (AUTO) 241 K/uL (150-450); RED BLOOD CELL COUNT(AUTO) 4.99 MIL/uL (4.50-5.90); RED CELL DISTRIBUTION WIDTH 13.9 % (11.5-14.5); WHITE BLOOD COUNT (AUTO) 10.7 K/uL (4.5-11.0)
[2016-07-18 07:05] LABS: CALCIUM, TOTAL 9.1 mg/dL (8.8-10.5); CREATININE 1.38 mg/dL (0.60-1.30); PHOSPHORUS 3.8 mg/dL (2.5-4.9); POTASSIUM 4.5 mmol/L (3.5-5.1)
[2016-07-18 07:53] VITALS: BP 116/77
[2016-07-18] MEDS: FUROSEMIDE 40 MG TABLET PO SCH (08:01)
[2016-07-18] MEDS: SERTRALINE HCL 50 MG TABLET PO SCH (08:01)
[2016-07-18] MEDS: BACLOFEN 10 MG TABLET PO SCH ×3 (08:01→20:25)
[2016-07-18] MEDS: ASPIRIN 81 MG CHEWABLE TABLET PO SCH (08:01)
[2016-07-18] MEDS: DOCUSATE SODIUM 250 MG CAPSULE PO SCH ×2 (08:02→20:25)
[2016-07-18] MEDS: CARVEDILOL 3.125 MG TABLET PO SCH ×2 (08:02→20:25)
[2016-07-18] MEDS: POTASSIUM CHLORIDE 10 MEQ ER TABLET PO SCH (08:02)
[2016-07-18] MEDS: LISINOPRIL 5 MG TABLET PO SCH (08:02)
[2016-07-18] MEDS: HEPARIN SODIUM,PORCINE 5,000 UNITS/ML VIAL SQ SCH ×2 (08:03→20:24)
[2016-07-18] MEDS: INSULIN ASPART 100 UNITS/ML SQ PRN ×2 (08:12→20:23)
[2016-07-18 12:46] LABS: GLUCOSE,POINT OF CARE 105 MG/DL (70-110)
[2016-07-18 15:20] VITALS: BP 121/65
[2016-07-18 19:31] LABS: GLUCOSE,POINT OF CARE 130 MG/DL (70-110)
[2016-07-18] MEDS: ATORVASTATIN CALCIUM 40 MG TABLET PO SCH (20:24)
[2016-07-18] MEDS: SENNA 187 MG TABLET PO SCH (20:24)
[2016-07-18] MEDS: TraZODone HCL 50 MG TABLET PO PRN (20:25)
[2016-07-18 20:31] VITALS: BP 101/71
[2016-07-18 21:31] LABS: GLUCOSE COMMENT 1 Received Meds; GLUCOSE,POINT OF CARE 178 MG/DL (70-110)
[2016-07-18 23:51] VITALS: BP 120/71
[2016-07-19] MEDS: GlipiZIDE 5 MG TABLET PO SCH (05:36)
[2016-07-19 05:41] LABS: GLUCOSE,POINT OF CARE 169 MG/DL (70-110)
[2016-07-19 07:58] VITALS: BP 113/79
[2016-07-19] MEDS: DOCUSATE SODIUM 250 MG CAPSULE PO SCH (08:57)
[2016-07-19] MEDS: ASPIRIN 81 MG CHEWABLE TABLET PO SCH (08:57)
[2016-07-19] MEDS: POTASSIUM CHLORIDE 10 MEQ ER TABLET PO SCH (08:58)
[2016-07-19] MEDS: FUROSEMIDE 40 MG TABLET PO SCH (08:58)
[2016-07-19] MEDS: LISINOPRIL 5 MG TABLET PO SCH (08:58)
[2016-07-19] MEDS: CARVEDILOL 3.125 MG TABLET PO SCH (08:58)
[2016-07-19] MEDS: BACLOFEN 10 MG TABLET PO SCH (08:58)
[2016-07-19] MEDS: SERTRALINE HCL 50 MG TABLET PO SCH (08:58)
[2016-07-19] MEDS: HEPARIN SODIUM,PORCINE 5,000 UNITS/ML VIAL SQ SCH (08:59)
[2016-07-19] MEDS: INSULIN ASPART 100 UNITS/ML SQ PRN (09:00)
[2016-07-19 11:46] LABS: GLUCOSE,POINT OF CARE 107 MG/DL (70-110)
[2016-07-19 19:01] LABS: GLUCOSE,POINT OF CARE 182 MG/DL (70-110)
== END 2016-07-19 16:30 | disposition home health service (06) | DRG 57 ==
LOC: 2WR 18:00
DX: I69.351 Hemiplegia and hemiparesis following cerebral infarction affecting right dominant side (principal); I69.354 Hemiplegia and hemiparesis following cerebral infarction affecting left non-dominant side; E03.9 Hypothyroidism, unspecified; E11.21 Type 2 diabetes mellitus with diabetic nephropathy; E11.22 Type 2 diabetes mellitus with diabetic chronic kidney disease; E11.65 Type 2 diabetes mellitus with hyperglycemia; N18.3 Chronic kidney disease, stage 3 (moderate); F32.9 Major depressive disorder, single episode, unspecified; E78.5 Hyperlipidemia, unspecified; F43.21 Adjustment disorder with depressed mood; I12.9 Hypertensive chronic kidney disease with stage 1 through stage 4 chronic kidney disease, or unspecified chronic kidney disease; I25.10 Atherosclerotic heart disease of native coronary artery without angina pectoris; F41.9 Anxiety disorder, unspecified; I69.322 Dysarthria following cerebral infarction; F12.90 Cannabis use, unspecified, uncomplicated; F17.200 Nicotine dependence, unspecified, uncomplicated; Z79.899 Other long term (current) drug therapy; Z79.01 Long term (current) use of anticoagulants; Z79.82 Long term (current) use of aspirin; Z79.4 Long term (current) use of insulin; Z28.21 Immunization not carried out because of patient refusal; Z82.49 Family history of ischemic heart disease and other diseases of the circulatory system; Z83.3 Family history of diabetes mellitus
CPT/HCPCS: 76770; 82043; 82570; 82962; 83735; 83970; 84100; 87081; 92507; 92508; 92523; 97110; 97112; 97116; 97150; 97163; 97167; 97530; 97535; 99366; J1644; J1815